=== PATIENT | male | born 1945 | race Caucasian/White ===

== ENCOUNTER 2017-10-24 08:43 | Inpatient (IN) | payer MEDICARE, BC ==
[2017-10-23 14:16] LABS: PARTIAL THROMBOPLASTIN TIME 26 SECONDS (22-32); PROTHROMBIN TIME 10.7 SECONDS (9.0-12.0)
[2017-10-23 14:20] LABS: BASOPHILS % (AUTO) 0.6 % (0-1); EOSINOPHILS # (AUTO) 0.4 X10'3 (0-0.9); EOSINOPHILS % (AUTO) 6.5 % (0-6); HEMATOCRIT 37.4 % (42.0-52.0); LYMPHOCYTES # (AUTO) 2.1 X10'3 (1.1-4.8); LYMPHOCYTES % (AUTO) 33.7 % (21-51); MEAN CORPUSCULAR HGB CONC 34.8 % (33.0-36.5); MEAN CORPUSCULAR VOLUME 92.2 FL (78-98); MEAN PLATELET VOLUME 7.8 FL (7.4-10.4); MONOCYTES # (AUTO) 0.6 X10'3 (0-0.9); MONOCYTES % (AUTO) 9.1 % (2-12); NEUTROPHILS % (AUTO) 50.1 % (42-75); PLATELET COUNT 191 X10'3 (140-440); RED BLOOD COUNT 4.05 X10'6 (4.70-6.10); RED CELL DISTRIBUTION WIDTH 12.5 % (11.5-14.5); WHITE BLOOD COUNT 6.1 X10'3 (4.5-11.0)
[2017-10-23 14:22] LABS: ALBUMIN 3.8 G/DL (3.4-5.0); ANION GAP 9 (8-16); BLOOD UREA NITROGEN 40 MG/DL (7-18); BUN/CREATININE RATIO 33.3 (5.4-32.0); CALCIUM 8.9 MG/DL (8.5-10.1); CHLORIDE 107 MMOL/L (99-107); GLUCOSE 110 MG/DL (70-104); POTASSIUM 4.6 MMOL/L (3.5-5.1); SODIUM 141 MMOL/L (135-145); TOTAL CARBON DIOXIDE 24.9 MMOL/L (24-32); eGFR 59 ML/MIN
[2017-10-24] VITALS (17 sets, daily range): BP systolic 132–185; BP diastolic 60–99
[~2017-10-24] VITALS: Ht 175.3 cm; Wt 85.0 kg
[2017-10-24] MEDS ORDERED: diphenhydrAMINE 25mg capsule PO PRN (09:15)
[2017-10-24] MEDS ORDERED: LORazepam 0.5 MG tablet PO PRN (09:15)
[2017-10-24] MEDS: normal saline 1000ml 1,000 ML IV SCH ×2 (10:01→17:56)
[2017-10-24] MEDS ORDERED: CLOP75TA35 PO (10:26)
[2017-10-24] MEDS ORDERED: CHOL400T PO (10:26)
[2017-10-24] MEDS ORDERED: PANT40TA4 PO (10:26)
[2017-10-24] MEDS ORDERED: PRAV10TA39 PO (10:26)
[2017-10-24] MEDS ORDERED: ASPI-611 PO (10:26)
[2017-10-24] MEDS ORDERED: SAW450CA7 PO (10:26)
[2017-10-24] MEDS ORDERED: UBID200C37 PO (10:26)
[2017-10-24] MEDS ORDERED: HYDR-565 PO (10:26)
[2017-10-24] MEDS ORDERED: IBUP-75 PO (10:26)
[2017-10-24] MEDS ORDERED: CARV-50 PO (10:26)
[2017-10-24] MEDS ORDERED: LISI-600 PO (10:26)
[2017-10-24] MEDS ORDERED: iohexol 350 MG/ML 50ML vial IV ONE (11:24)
[2017-10-24] MEDS ORDERED: heparin 1,000unit/ml 10ml vial 10 ML ONE (11:24)
[2017-10-24] MEDS ORDERED: iohexol 350MG/ML 100ml bottle IV ONE ×2 (11:24→12:18)
[2017-10-24] MEDS ORDERED: midazolam 2 mg/2 ml injection ONE (11:24)
[2017-10-24] MEDS ORDERED: fentaNYL/PF 50MCG/1 ML 2ML syringe ONE (11:24)
[2017-10-24] MEDS ORDERED: nitroGLYCERIN-Tridil 50MG/D5W 250 ML IV ONE (11:24)
[2017-10-24] MEDS ORDERED: LIDOcaine 1%/PF (10mg/ml) 5ml vial ONE (11:24)
[2017-10-24] MEDS ORDERED: atropine 0.1mg/ml 10ml syringe ONE (12:38)
[2017-10-24] MEDS ORDERED: nitroGLYCERIN 0.4mg SUBLingual tab SL ONE (13:13)
[2017-10-24] MEDS ORDERED: clopidogrel 300mg tablet ONE (13:19)
[2017-10-24] MEDS ORDERED: cyclobenzaprine 10mg tablet PO PRN (14:05)
[2017-10-24] MEDS ORDERED: magnesium hydroxide 30ml (MOM) UD suspension PO PRN (14:05)
[2017-10-24] MEDS ORDERED: nitroGLYCERIN 0.4mg SUBLingual tab SL PRN (14:05)
[2017-10-24] MEDS ORDERED: proCHLORperazine 10 MG/2 ml inj IV PRN (14:05)
[2017-10-24] MEDS ORDERED: acetaminophen 325mg tablet PO PRN (14:05)
[2017-10-24] MEDS ORDERED: OXAZEpam 15mg capsule PO PRN (14:05)
[2017-10-24] MEDS ORDERED: ibuprofen 200mg tablet PO PRN (14:10)
[2017-10-24] MEDS: HYDROcodone/acetaminophen 10/325mg tab PO PRN (14:36)
[2017-10-24] MEDS ORDERED: hydrALAZINE 20mg/ml inj. IV ONE (15:30)
[2017-10-24] MEDS ORDERED: aspirin 325mg tablet PO ONE (17:55)
[2017-10-24] MEDS: docusate sod 100mg capsule PO SCH (20:20)
[2017-10-24] MEDS: carVEDilol 12.5mg tablet PO SCH (20:20)
[2017-10-24] MEDS ORDERED: atorvastatin 10mg tablet PO SCH (21:00)
[2017-10-25 03:15] VITALS: BP 124/78
[2017-10-25 06:35] VITALS: BP 133/70
[2017-10-25] MEDS: docusate sod 100mg capsule PO SCH (07:17)
[2017-10-25] MEDS: HYDROcodone/acetaminophen 10/325mg tab PO PRN (07:18)
[2017-10-25] MEDS: carVEDilol 12.5mg tablet PO SCH (07:19)
[2017-10-25] MEDS ORDERED: pantoprazole 40mg Tablet.DR PO SCH (07:30)
[2017-10-25] MEDS ORDERED: PRAV40TA PO (07:46)
[2017-10-25] MEDS ORDERED: ASPI-1264 PO (07:46)
[2017-10-25 07:51] LABS: BASOPHILS % (AUTO) 0.4 % (0-1); EOSINOPHILS # (AUTO) 0.3 X10'3 (0-0.9); EOSINOPHILS % (AUTO) 5.3 % (0-6); HEMOGLOBIN 12.9 g/dl (14.0-17.9); LYMPHOCYTES # (AUTO) 1.4 X10'3 (1.1-4.8); LYMPHOCYTES % (AUTO) 24.7 % (21-51); MEAN CORPUSCULAR HEMOGLOBIN 31.8 PG (27.0-31.0); MEAN CORPUSCULAR HGB CONC 34.9 % (33.0-36.5); MEAN CORPUSCULAR VOLUME 91.1 FL (78-98); MEAN PLATELET VOLUME 7.4 FL (7.4-10.4); MONOCYTES # (AUTO) 0.5 X10'3 (0-0.9); MONOCYTES % (AUTO) 9.8 % (2-12); NEUTROPHILS # (AUTO) 3.3 X10'3 (1.8-7.7); NEUTROPHILS % (AUTO) 59.8 % (42-75); PLATELET COUNT 175 X10'3 (140-440); RED BLOOD COUNT 4.07 X10'6 (4.70-6.10); RED CELL DISTRIBUTION WIDTH 13.5 % (11.5-14.5); WHITE BLOOD COUNT 5.6 X10'3 (4.5-11.0)
[2017-10-25] MEDS ORDERED: cholecalciferol (vitamin D) 400 unit tablet PO SCH (08:00)
[2017-10-25] MEDS ORDERED: lisinopril 5mg tablet PO SCH (08:00)
[2017-10-25] MEDS ORDERED: SAW PALMETTO PO SCH (08:00)
[2017-10-25] MEDS ORDERED: clopidogrel 75mg tablet PO SCH (08:00)
[2017-10-25] MEDS ORDERED: non-formulary drug (Ubidecarenone (Co Q10) 200 MG) PO SCH (08:00)
[2017-10-25 08:06] LABS: ALBUMIN 3.5 G/DL (3.4-5.0); ANION GAP 8 (8-16); BLOOD UREA NITROGEN 26 MG/DL (7-18); CALCIUM 8.6 MG/DL (8.5-10.1); CHLORIDE 107 MMOL/L (99-107); CHOL/HDL RATIO 3.7 (0.00-4.99); CHOLESTEROL 150 MG/DL (0-200); GLUCOSE 102 MG/DL (70-104); HDL CHOLESTEROL 41 MG/DL (35-60); LDL CHOLESTEROL 86 MG/DL (50-100); POTASSIUM 4.6 MMOL/L (3.5-5.1); SODIUM 140 MMOL/L (135-145); TOTAL CARBON DIOXIDE 24.6 MMOL/L (24-32); TRIGLYCERIDES 135 MG/DL (20-135); eGFR 73 ML/MIN
[2017-10-25] MEDS ORDERED: aspirin 325mg tablet PO SCH (08:30)
== END 2017-10-25 10:42 | disposition home or self-care (01) | DRG 247 ==
LOC: SSTAY O 08:43 → PCU 3S 14:00 → SSTAY O 14:00 → PCU 3S 19:12
PROVIDERS: ADMIT Internal Medicine Cardiovascular Disease; ATTEND Internal Medicine Cardiovascular Disease
PROC: 027034Z Dilation of Coronary Artery, One Artery with Drug-eluting Intraluminal Device, Percutaneous Approach (ICD-10-PCS; principal; 2017-10-24)
PROC: 4A023N7 Measurement of Cardiac Sampling and Pressure, Left Heart, Percutaneous Approach (ICD-10-PCS; 2017-10-24)
PROC: B2111ZZ Fluoroscopy of Multiple Coronary Arteries using Low Osmolar Contrast (ICD-10-PCS; 2017-10-24)
PROC: B2151ZZ Fluoroscopy of Left Heart using Low Osmolar Contrast (ICD-10-PCS; 2017-10-24)
DX: I25.110 Atherosclerotic heart disease of native coronary artery with unstable angina pectoris (principal); T82.855A Stenosis of coronary artery stent, initial encounter; I35.8 Other nonrheumatic aortic valve disorders; E78.5 Hyperlipidemia, unspecified; K21.9 Gastro-esophageal reflux disease without esophagitis; I10 Essential (primary) hypertension; M19.90 Unspecified osteoarthritis, unspecified site; G47.33 Obstructive sleep apnea (adult) (pediatric); N40.0 Benign prostatic hyperplasia without lower urinary tract symptoms; Y83.1 Surgical operation with implant of artificial internal device as the cause of abnormal reaction of the patient, or of later complication, without mention of misadventure at the time of the procedure; Z79.82 Long term (current) use of aspirin; Z79.899 Other long term (current) drug therapy; Y92.89 Other specified places as the place of occurrence of the external cause
CPT/HCPCS: 93458; C9600; 36415; 80048; 80061; 85025; 85347; 85610; 85730; 93005; 99152; 99153; A4620; A6257; A6449; C1725; C1769; C1874; C1887; J0360; J0461; J1644; J2001; J2250; J3010; J3490; J7030; Q0163; Q9967

== ENCOUNTER 2018-04-08 11:53 | Emergency (ER) | payer MEDICARE, BC ==
[~2018-04-08] VITALS: Ht 175.3 cm; Wt 83.0 kg
[~2018-04-08 11:53] MED LIST: CARV-50 PO; CHOL400T PO; CLOP75TA35 PO; HYDR-565 PO; IBUP-75 PO; LISI-600 PO; PANT40TA4 PO; PRAV40TA PO; SAW450CA7 PO; UBID200C37 PO
[2018-04-08] MEDS ORDERED: normal saline 1000ML IV soln IV ONE (13:20)
[2018-04-08] MEDS ORDERED: CefTRIAXone 2gm/D5W 50ml 50 ML IV ONE (13:20)
[2018-04-08 13:46] LABS: BASOPHILS % (AUTO) 0.2 % (0-1); EOSINOPHILS # (AUTO) 0.2 X10'3 (0-0.9); EOSINOPHILS % (AUTO) 1.9 % (0-6); HEMATOCRIT 37.6 % (42.0-52.0); HEMOGLOBIN 12.8 g/dl (14.0-17.9); LYMPHOCYTES # (AUTO) 1.2 X10'3 (1.1-4.8); LYMPHOCYTES % (AUTO) 11.7 % (21-51); MEAN CORPUSCULAR HEMOGLOBIN 32.2 PG (27.0-31.0); MEAN CORPUSCULAR HGB CONC 34.1 % (33.0-36.5); MEAN CORPUSCULAR VOLUME 94.3 FL (78-98); MEAN PLATELET VOLUME 6.8 FL (7.4-10.4); MONOCYTES # (AUTO) 0.7 X10'3 (0-0.9); NEUTROPHILS # (AUTO) 8.2 X10'3 (1.8-7.7); NEUTROPHILS % (AUTO) 79.2 % (42-75); PLATELET COUNT 176 X10'3 (140-440); RED BLOOD COUNT 3.99 X10'6 (4.70-6.10); RED CELL DISTRIBUTION WIDTH 14.3 % (11.5-14.5); WHITE BLOOD COUNT 10.3 X10'3 (4.5-11.0)
[2018-04-08 13:56] LABS: PARTIAL THROMBOPLASTIN TIME 30 SECONDS (22-32); PROTHROMBIN TIME 10.5 SECONDS (9.0-12.0)
[2018-04-08 14:01] LABS: ALANINE AMINOTRANSFERASE 21 U/L (12-78); ALBUMIN/GLOBULIN RATIO 0.8 (1.1-1.5); ALKALINE PHOSPHATASE 81 IU/L (46-116); ANION GAP 9 (8-16); ASPARTATE AMINO TRANSFERASE 18 U/L (10-37); BILIRUBIN,TOTAL 0.5 MG/DL (0.1-1.0); BLOOD UREA NITROGEN 33 MG/DL (7-18); BUN/CREATININE RATIO 18.4 (5.4-32.0); CALCIUM 8.1 MG/DL (8.5-10.1); CHLORIDE 98 MMOL/L (99-107); CREATININE 1.79 MG/DL (0.60-1.10); GLUCOSE 127 MG/DL (70-104); MAGNESIUM 1.7 MG/DL (1.5-2.4); SODIUM 131 MMOL/L (135-145); TOTAL CARBON DIOXIDE 23.7 MMOL/L (24-32); TOTAL PROTEIN 6.8 G/DL (6.4-8.2); eGFR 37 ML/MIN
[2018-04-08 14:14] LABS: CLARITY,URINE CLEAR (Clear); COLOR,URINE YELLOW (Yellow); GLUCOSE, URINE NEGATIVE (Neg); KETONES,URINE NEGATIVE (Neg); LEUKOCYTE ESTERASE ,URINE NEGATIVE (Neg); NITRITES, URINE NEGATIVE (Neg); OCCULT BLOOD,URINE NEGATIVE (Neg); PH,URINE 5.5 (4.8-8.0); PROTEIN,URINE NEGATIVE (Neg); UROBILINOGEN,URINE 0.2 E.U/dL (0.2-1.0)
[2018-04-08 14:27] LABS: UA COLLECTION TYPE URINAL
[2018-04-08] MEDS ORDERED: LEVO500T89 PO (15:19)
[2018-04-08] MEDS ORDERED: levoFLOXACIN 250mg tablet PO ONE (15:20)
[2018-04-08 15:38] VITALS: BP 120/80
== END 2018-04-08 15:40 | disposition home or self-care (01) ==
LOC: ER 11:53
DX: J18.9 Pneumonia, unspecified organism (principal); I10 Essential (primary) hypertension; R30.0 Dysuria; R10.31 Right lower quadrant pain; Z79.899 Other long term (current) drug therapy
CPT/HCPCS: 36415; 71045; 80053; 81003; 83605; 83735; 84145; 85025; 85610; 85730; 87040; 93005; 96365; 99285; A4353; J0696; J7030

== ENCOUNTER 2021-04-12 08:53 | Outpatient (CLI) | payer MEDICARE, BC ==
[~2021-04-12 08:53] MED LIST changes: +CLOP75TA34 PO; -CLOP75TA35 PO; +HYDR-4353 PO; -HYDR-565 PO; -LISI-600 PO; +LISI20TA28 PO; -PANT40TA4 PO; +PANT40TA54 PO
== END 2021-04-12 23:59 | disposition home or self-care (01) ==
LOC: RAD 08:53
PROVIDERS: ATTEND Family Medicine
DX: I67.82 Cerebral ischemia (principal); J34.2 Deviated nasal septum; G93.89 Other specified disorders of brain
CPT/HCPCS: 70551

== ENCOUNTER 2022-04-11 09:53 | Emergency (ER) | payer MEDICARE, BC ==
[~2022-04-11] VITALS: Ht 175.3 cm; Wt 87.3 kg
[~2022-04-11 09:53] MED LIST changes: -IBUP-75 PO; +IBUP-76 PO
[2022-04-11 10:22] VITALS: BP 148/83
== END 2022-04-11 17:51 | disposition left against medical advice (07) ==
LOC: ER 09:53
DX: R00.1 Bradycardia, unspecified (principal); I10 Essential (primary) hypertension; Z53.21 Procedure and treatment not carried out due to patient leaving prior to being seen by health care provider; Z79.899 Other long term (current) drug therapy
CPT/HCPCS: 93005

== ENCOUNTER 2022-12-22 11:27 | Outpatient (CLI) | payer MEDICARE, BC ==
[~2022-12-22 11:27] MED LIST changes: +IBUP-2632 PO; -IBUP-76 PO
== END 2022-12-22 23:59 | disposition home or self-care (01) ==
LOC: RAD 11:27
PROVIDERS: ATTEND Family Medicine
DX: N28.89 Other specified disorders of kidney and ureter (principal)
CPT/HCPCS: 76770

== ENCOUNTER 2024-09-10 06:02 | Day surgery (SDC) | payer MEDICARE, BC ==
[2024-09-09 15:01] LABS: BASOPHILS # (AUTO) 0.1 X10'3 (0-0.2); BASOPHILS % (AUTO) 0.9 % (0-1); EOSINOPHILS # (AUTO) 0.3 X10'3 (0-0.9); EOSINOPHILS % (AUTO) 4.1 % (0-6); HEMATOCRIT 42.2 % (42.0-52.0); HEMOGLOBIN 14.7 g/dl (14.0-17.9); LYMPHOCYTES # (AUTO) 2.5 X10'3 (1.1-4.8); LYMPHOCYTES % (AUTO) 33.6 % (21-51); MEAN CORPUSCULAR HEMOGLOBIN 32.9 PG (27.0-31.0); MEAN CORPUSCULAR HGB CONC 34.8 g/dL (33.0-36.5); MEAN CORPUSCULAR VOLUME 94.8 FL (78-98); MEAN PLATELET VOLUME 7.3 FL (7.4-10.4); MONOCYTES # (AUTO) 0.8 X10'3 (0-0.9); NEUTROPHILS # (AUTO) 3.9 X10'3 (1.8-7.7); NEUTROPHILS % (AUTO) 51.4 % (42-75); PLATELET COUNT 184 X10'3 (140-440); RED BLOOD COUNT 4.45 X10'6 (4.70-6.10); WHITE BLOOD COUNT 7.5 X10'3 (4.5-11.0)
[2024-09-09 15:28] LABS: ALBUMIN 3.5 G/DL (3.4-5.0); ANION GAP 11 (8-16); BLOOD UREA NITROGEN 30 MG/DL (7-18); BUN/CREATININE RATIO 24.6 (10.0-20.0); CALCIUM 8.8 MG/DL (8.5-10.1); CHLORIDE 100 MMOL/L (99-107); CREATININE 1.22 MG/DL (0.60-1.10); GLUCOSE 114 MG/DL (70-104); POTASSIUM 3.9 MMOL/L (3.5-5.1); SODIUM 138 MMOL/L (135-145); eGFR 57 ML/MIN
[2024-09-10] VITALS (14 sets, daily range): BP systolic 110–162; BP diastolic 62–92; PULSE 50–57; RESP 10–19; TEMP 98.2; O2SAT 92–96
[~2024-09-10] VITALS: Ht 175.3 cm; Wt 99.3 kg
[2024-09-10 06:56] LABS: APTT 22 SECONDS (22-32); PROTHROMBIN TIME 10.7 SECONDS (9.0-12.0)
[2024-09-10] MEDS ORDERED: fentaNYL/PF 50MCG/1 ML 2ML syringe ONE (07:12)
[2024-09-10] MEDS ORDERED: LIDOcaine 1% (10mg/ml) 2ml vial ONE (07:12)
[2024-09-10] MEDS ORDERED: iohexol 350 MG/ML 50ML vial IV ONE (07:12)
[2024-09-10] MEDS ORDERED: heparin 1,000unit/ml 10ml vial 10 ML ONE (07:12)
[2024-09-10] MEDS ORDERED: midazolam 1 mg/ML 2ml injection ONE (07:12)
[2024-09-10] MEDS ORDERED: verapamil 2.5 mg/ml inj IV ONE (07:12)
[2024-09-10] MEDS ORDERED: iohexol 350MG/ML 100ml bottle IV ONE (07:13)
[2024-09-10] MEDS ORDERED: nitroGLYCERIN 500mcg/5mL D5W 5 ML IV ONE ×2 (07:15→09:49)
[2024-09-10] MEDS: LORazepam 0.5 MG tablet PO PRN (07:39)
[2024-09-10] MEDS ORDERED: CARV6.2553 PO (07:40)
[2024-09-10] MEDS: normal saline 1,000 ML IV SCH (07:40)
[2024-09-10] MEDS: diphenhydrAMINE 25mg capsule PO PRN (07:40)
[2024-09-10] MEDS ORDERED: HYDR-3972 PO (07:40)
[2024-09-10] MEDS ORDERED: TRAZ-251 PO (07:40)
[2024-09-10] MEDS ORDERED: EVOL140P3 SQ (07:40)
[2024-09-10] MEDS ORDERED: CHLO25TA10 PO (07:40)
[2024-09-10] MEDS ORDERED: MULT-1085 PO (07:42)
[2024-09-10] MEDS ORDERED: ASPI-1265 PO (07:42)
[2024-09-10] MEDS ORDERED: ERGO400C2 PO (07:57)
[2024-09-10] MEDS ORDERED: SAW/1TAB2 PO (07:57)
[2024-09-10] MEDS ORDERED: heparin 1,000 UNITS/NS 500ml 500 ML ONE (08:46)
[2024-09-10 08:54] LABS: ISTAT HGB ART 13.3 g/dl (14.0-17.9); ISTAT Hct ART 39 %PCV (42-52); ISTAT O2 SATURATION ARTERIAL 92 % (95-98); ISTAT SOURCE ART
[2024-09-10 09:04] LABS: ISTAT HGB MIX 12.6 g/dl (14.0-17.9); ISTAT Hct MIX 37 %PCV (42-52); ISTAT O2 SATURATION MIX VENOUS 62 % (60-80); ISTAT SOURCE VEN
[2024-09-10] MEDS ORDERED: heparin 25,000 UNIT/250ml bag 250 ML IV ONE (09:08)
[2024-09-10] MEDS ORDERED: clopidogrel 300mg tablet ONE (09:44)
[2024-09-10] MEDS ORDERED: ASPI81TA30 PO (10:33)
[2024-09-10] MEDS ORDERED: CLOP75TA33 PO (10:33)
[2024-09-10] MEDS ORDERED: OXAZEpam 15mg capsule PO PRN (10:50)
[2024-09-10] MEDS ORDERED: HYDROcodone/acetaminophen 10/325mg tab PO PRN (10:50)
[2024-09-10] MEDS ORDERED: HYDROcodone/acetaminophen 5mg/325mg tablet PO PRN (10:50)
[2024-09-10] MEDS ORDERED: normal saline 1000ml 1,000 ML IV SCH (10:50)
[2024-09-10] MEDS ORDERED: clopidogrel 300mg tablet PO ONE (10:50)
[2024-09-10] MEDS: sodium bicarbonate (8.4%) inj. 50 MEQ in dextrose 5%-water 1,000 ML IV SCH (11:27)
[2024-09-10] MEDS: morphine 2 MG/ML inj. syringe IV PRN ×2 (11:27→15:55)
[2024-09-10] MEDS: pneumococcal 23-VAL P-sac vacc 25 mcg/0.5ml vial IMVAC ONE (11:29)
[2024-09-10] MEDS: FLU VACC TS2024-25(6MOS UP)/PF 45 MCG/0.5 ML SYRINGE IMVAC ONE (11:31)
[2024-09-11] MEDS ORDERED: clopidogrel 75mg tablet PO SCH (08:00)
== END 2024-09-10 14:45 | disposition home or self-care (01) ==
LOC: SSTAY O 06:02
PROVIDERS: ATTEND Internal Medicine Cardiovascular Disease
DX: I25.10 Atherosclerotic heart disease of native coronary artery without angina pectoris (principal); I35.0 Nonrheumatic aortic (valve) stenosis; Z23 Encounter for immunization; I10 Essential (primary) hypertension; E78.5 Hyperlipidemia, unspecified; Z95.5 Presence of coronary angioplasty implant and graft; Z79.899 Other long term (current) drug therapy; Z98.890 Other specified postprocedural states
CPT/HCPCS: 36415; 80048; 82803; 85014; 85025; 85347; 85610; 85730; 90471; 90472; 90686; 90732; 92920; 92972; 93005; 93460; A6258; A6402; C1725; C1751; C1769; C1894; J1644; J2003; J2250; J2270; J3010; J3490; J7030; J7070; Q0163; Q9967; Z7610; 36217; 76937; 99152; 99153; A6449

== ENCOUNTER 2024-09-29 17:21 | Emergency (ER) | payer MEDICARE, BC ==
[~2024-09-29] VITALS: Ht 175.3 cm; Wt 81.8 kg
[~2024-09-29 17:21] MED LIST changes: +ASPI-1265 PO; +ASPI81TA30 PO; -CARV-50 PO; +CARV6.2553 PO; +CHLO25TA10 PO; -CHOL400T PO; +CLOP75TA33 PO; -CLOP75TA34 PO; +ERGO400C2 PO; +EVOL140P3 SQ; +HYDR-3972 PO; -HYDR-4353 PO; -IBUP-2632 PO; -LISI20TA28 PO; +MULT-1085 PO; -PANT40TA54 PO; -PRAV40TA PO; +SAW/1TAB2 PO; -SAW450CA7 PO; +TRAZ-251 PO; -UBID200C37 PO
[2024-09-29 19:13] VITALS: BP 158/98; PULSE 80; RESP 18; TEMP 97.8; O2SAT 98
== END 2024-09-29 22:30 | disposition left against medical advice (07) ==
LOC: ER 17:21
DX: I10 Essential (primary) hypertension (principal); Z53.21 Procedure and treatment not carried out due to patient leaving prior to being seen by health care provider